=== PATIENT | female | born 1975 | race Caucasian/White ===

== ENCOUNTER → 2018-07-05 | Outpatient (CLI) | payer BC ==
--- NOTE | 2018-07-05 17:10 | PCVCIMAG ---
APPROVED REPORT Study performed: 07/05/2018 13:38:01 Exam: Stress Echocardiogram Indication: Dyspnea ,chest pain,abn EKG, Patient Location: Echo lab Stress Nurse: Carolina Briones RN Room #: 2 Status: routine Ht: 5 ft 6 in HR: 82 bpm BP: 138/90 mmHg Rhythm: NSR Medical History Medical History: Tobacco history (Former), Obesity ,Vertigo Cardiac Risk Factors: DM, Tobacco History (Former) Previous Cardiac Procedures: none Pretest Chest Pain Characteristics: No chest pain Exercise History: Sedentary Procedure The patient underwent an Exercise Stress Test using the Lacey Protocol. Blood pressure, heart rate, and EKG were monitored. An Echocardiogram was performed by records technician in four stages in quad fashion. At peak stress, four selected images were obtained and placed side by side with resting images for comparison. Stress Test Details Stress Test: Exercise stress testing was performed using a Lacey protocol. HR Resting HR: 82 bpmMax Heart Rate (APMHR): 179 bpm Max HR Achieved: 157 bpmTarget HR (85% APMHR): 152 bpm % of APMHR: 87 Recovery HR: 98 bpm HR response to stress: Normal HR response to stress BP Resting BP: 138/90 mmHg Max BP: 210/80 mmHg Recovery BP: 180/80 mmHg BP response to stress: Normal blood pressure response to stress. ECG Resting ECG: Sinus Rhythm Stress ECG: Sinus Rhythm ST Change: Non-ischemic Maximum ST Deviation: -1.6 mm Arrhythmia: rare PVCs Recovery ECG: Sinus Rhythm Recovery ST Change: Non-ischemic Recovery ST Deviation: -0.45 mm Recovery Arrhythmia: None Clinical Reason for Termination: Maximal effort Stress Symptoms: fatigue Exercise duration: 7 min 01 sec Highest Stage Achieved: Stage 3: 3.4 mph at 14% grade. Exercise capacity: 10.1 METs Overall Exercise Capacity for Age: Average Scale: Sedentary Angina Score: None No complications. Stress ECG Conclusion The patient exercised according to the LACEY protocol for 7:01 mins; achieving a work level of 10.1 METS. The resting heart rate of 82 bpm dolores to a maximum heart rate of 157 bpm. This value represent 87% of the maximal, age-predicted heart rate. The resting blood pressure of 138/90 mmHg, dolores to a maximum blood pressure of 210/80 mmHg. The exercise test was stopped due to fatigue. Patino Treadmill Score is 15.0 which is Low risk. Pre-Stress Echo The resting Echocardiogram showed normal left ventricular contractility with an estimated Ejection Fraction of about 55-60%. Post-Stress Echo The stress Echocardiogram showed normal left ventricular contractility with an estimated Ejection Fraction of about 65-70%. Normal augmentation of wall motion in all segments on post stress images. Clinical No clinical or ECG evidence for ischemia. Conclusion Clinical Response: Non-ischemic Exercise Capacity: Average Stress ECG Response: Non-ischemic Stress Echo Images: Non-ischemic No clinical, EKG or echocardiographic evidence for ischemia. No prior study available for comparison. <Conclusion> No clinical, EKG or echocardiographic evidence for ischemia.
== END | disposition home or self-care (01) ==
LOC: PCVCIMAG 13:00
PROVIDERS: ATTEND Nurse Practitioner
DX: R06.09 Other forms of dyspnea (principal); R07.9 Chest pain, unspecified; R94.31 Abnormal electrocardiogram [ECG] [EKG]; J45.998 Other asthma; I10 Essential (primary) hypertension
CPT/HCPCS: 93325; 93351